=== PATIENT | female | born 1965 | race American Indian/Alaskan Native ===

== ENCOUNTER 2020-06-27 06:31 | Day surgery (SDC) | payer OTHER ==
[2020-06-27] MEDS ORDERED: SODIUM CHLORIDE 0.9% 1000 ML 1,000 ML IV SCH (07:00)
--- NOTE | 2020-06-27 07:34 | Anesthesia Consultation ---
Anesthesia Consult and Med Hx Date of service: 06/27/20 - Airway Anesthetic Teeth Evaluation: Good ROM Head & Neck: Adequate Mental/Hyoid Distance: Adequate Mallampati Class: Class II Intubation Access Assessment: Probably Good - Pre-Operative Health Status ASA Pre-Surgery Classification: ASA2 Proposed Anesthetic Plan: MAC - Cardiovascular System Hx Coronary Artery Disease: No (high cholesterol) - Gastrointestinal Hx Ulcer: No (abdominal pain, h/o diverticulosis) - Endocrine Hx Insulin Dependent Diabetes: Yes
--- NOTE | 2020-06-27 07:34 | Anesthesia Day of Surgery ---
Anesthesia Day of Surgery - Day of Surgery Patient Examined: Yes Patient H&P Reviewed: Yes Patient is NPO: Yes
[2020-06-27] MEDS ORDERED: LIDOCAINE MPF (2%) 20 MG/1 ML VIAL 5 ML ONE (08:00)
[2020-06-27] MEDS ORDERED: propofoL 200 MG/20 ML VIAL IV ONE ×2 (08:15)
--- NOTE | 2020-06-27 08:46 | Short Stay Summary ---
Short Stay Documentation Date of service: 06/27/20 Narrative H&P: See office H&P from 06/05/20 - History H&P: obtained from office - Allergies and Medications Current Medications: Allergies No Known Allergies Allergy (Unverified 06/26/20 10:10) Home Medications Medication Instructions Recorded Confirmed Last Taken Type AtorvaSTATin [Lipitor] 20 mg PO QHS 06/26/20 06/26/20 Unknown History Insulin Aspart (Nf) [NovoLOG 0 units SQ AC 06/26/20 06/26/20 Unknown History Flexpen] glipiZIDE [Glucotrol] 10 mg PO QDAY 06/26/20 06/26/20 Unknown History metFORMIN [Glucophage] 500 mg PO BID 06/26/20 06/26/20 Unknown History Active Medications Sodium Chloride (Nacl 0.9% 1000 Ml) 1,000 mls @ 50 mls/hr IV DIRECT KELLIE - Brief post op/procedure progress note Date of procedure: 06/27/20 Findings: see dictation Estimated blood loss: none Pathology: none - Disposition Condition at discharge: Good Disposition: DC-01 TO HOME OR SELFCARE - Discharge Diagnoses (1) LLQ abdominal pain Status: Acute Short Stay Discharge Plan Activity: other (No driving for 24 hours) Weight Bearing Status: Full Weight Bearing Diet: regular Follow up with: KRISTINE MARTINEZ MD [Primary Care Provider] - 7 Days
--- NOTE | 2020-06-27 08:50 | Operative Report ---
Operative Report Operative Report: Date of procedure: 06/27/2020 Preprocedure diagnosis: Persistent left lower quadrant pain Post procedure diagnosis: Mild diverticulosis of the left colon Procedure: Colonoscopy to the cecum and terminal ileum Endoscopist: Dr. Crater Anesthesia: Monitored anesthesia care per anesthesia department Estimated blood loss: 0 Medications: Monitored anesthesia care. See separate report by anesthesia for details. After careful discussion of the nature and purpose of the procedure as well as details of the technique risks benefits and alternatives the patient gave consent. Please see recent history and physical from the office. The patient was placed in the left lateral decubitus position and medicated per anesthesia. A rectal exam was performed sphincter tone was normal there were no masses palpable. The Olympus colonoscope was passed transanally and advanced under continuous direct vision without difficulty to the cecum. The colon was well prepared. The cecum was normal. The scope was advanced through the ileocecal valve and into the distal 10 cm of terminal ileum. The terminal ileum appeared normal. The ileocecal valve appeared normal. The ascending colon was normal and on forward and retroflexed views. The transverse colon was normal. There were a few scattered diverticula in the descending and sigmoid colon. No inflammation was present. There were no strictures or mass lesions. The rectum was normal on forward and retroflexed views. The procedure was well-tolerated overall and the patient was observed in recovery. Conclusions: Mild diverticulosis of the sigmoid colon. No evidence of mass lesions or strictures. Normal colon and terminal ileum otherwise. Findings overall do not suggest a reason for chronic pain. Plan: EGD is recommended based on review of the findings of an abnormal CT and MRI recently. 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 Signed electronically: Joseph Carter M.D.
[2020-06-27 10:14] VITALS: BP 120/67
--- NOTE | 2020-06-27 12:58 | Post Anesthesia Evaluation ---
- Post Anesthesia Evaluation Patient Participated: Yes Airway Patent: Yes Stable Respiratory Function: Yes Nausea/Vomiting: No Temp > 96.8F: Yes Pain Manageable: Yes Adequeate Hydration: Yes Anesthesia Complications: No
== END 2020-06-27 06:32 | disposition home or self-care (01) ==
LOC: GIO 06:31
PROVIDERS: ATTEND Internal Medicine Gastroenterology
DX: R10.32 Left lower quadrant pain (principal); K57.30 Diverticulosis of large intestine without perforation or abscess without bleeding; E78.00 Pure hypercholesterolemia, unspecified; R63.4 Abnormal weight loss; E11.9 Type 2 diabetes mellitus without complications; Z79.4 Long term (current) use of insulin; Z79.84 Long term (current) use of oral hypoglycemic drugs
CPT/HCPCS: 45378; J2704; J7030